=== PATIENT | female | born 1950 | race Caucasian/White ===

== ENCOUNTER 2016-08-03 13:35 | Observation (INO) ==
--- NOTE | 2016-08-03 15:19 | Emergency Department Note ---
Disposition Clinical Impression: Hypertension, Hypertensive urgency, UTI (urinary tract infection), Frail elderly Disposition: Admitted As Inpatient Referrals: Evan Davis MD [Primary Care Provider] - Forms: Work/School Release, ED Satisfaction Letter General Adult HPI - General Chief complaint: ED General Medical Stated complaint: HTN Time Seen by Provider: 08/03/16 15:18 Source: patient Limitations: no limitations - History of Present Illness HPI Narrative: 65-year-old female history of intermittent hypertension reports emergency department with concerns for elevated blood pressure. She usually takes a diuretic as needed to help bring her blood pressure down. She states she has had trouble taking clonidine in the past secondary to rebound hypertension. She does not usually take antihypertensive medication daily. The patient monitor her blood pressure today and noticed it was up and took a few doses of diuretic which were unhelpful. She reports she just feels a little bit off, she has a mild head pressure without severe headache. There is no history of convulsion confusion or any trouble walking talking hearing seeing or speaking. No unilateral arm weakness or numbness reported apart from some slight left arm tingling which occurred when she was feeling somewhat anxious about her blood pressure. There is no history of chest pain shortness of breath or abdominal pain no vomiting or diarrhea no trouble walking talking hearing seeing or speaking. Next rash or fever or cough reported or noted. She usually receives injections in the SI joint for her pain. She has had hypertensive reaction to nonsteroidals in the past but no notable reactions to steroids. She does not have significant back or hip pain at this time. The patient denies any other complaints or concerns. Pain Scale: 1 - Related Data Home Medications Medication Instructions Recorded Confirmed ALPRAZolam [Xanax 0.5 MG Tablet] 0.25 - 0.5 mg PO BID PRN 08/03/16 08/03/16 Cholecalciferol (D-3) [Vitamin D] 2,000 unit PO DAILY 08/03/16 08/03/16 Sucralfate [Carafate] 1 gm PO DAILY PRN 08/03/16 08/03/16 hydroCHLOROthiazide 12.5 - 25 mg PO DAILY PRN 08/03/16 08/03/16 [Hydrochlorothiazide] Allergies Allergy/AdvReac Type Severity Reaction Status Date / Time aspirin [ASA] AdvReac Cough Verified 04/15/15 13:21 lisinopril AdvReac Muscle Pain Verified 04/15/15 13:21 losartan [Losartan] AdvReac Muscle Pain Verified 04/15/15 13:21 NSAIDS (Non-Steroidal AdvReac Gastrointestinal Verified 04/15/15 13:21 Anti-Inflamma Upset Penicillins [PCN] AdvReac Rash Verified 04/15/15 13:21 All systems ED: reviewed and negative except as stated. Past Medical History - Past Medical History Medical history: Reports: arthritis, hypertension Surgical history: Reports: breast surgery, cholecystectomy, hysterectomy, thyroidectomy Psychiatric history: Reports: anxiety [employer] RE[employer]ER history: Reports: non-contributory - Social History Smoking Status: Never smoker Smokeless Tobacco Status: No Alcohol use: Reports: none Drug use: Reports: none Physical Exam - General Limitations: no limitations General appearance: alert, in no apparent distress - Head Head exam: atraumatic, normocephalic, normal inspection - Eye Eye exam: Present: normal appearance, PERRL, EOMI. Absent: scleral icterus, conjunctival injection, miosis, mydriasis, periorbital swelling - ENT ENT exam: normal exam, normal oropharynx, mucous membranes moist - Neck Neck exam: Present: normal inspection, full ROM, trachea midline. Absent: tenderness - Chest Chest inspection: Present: normal inspection, symmetric chest wall rise. Absent : tenderness - Respiratory Respiratory exam: Present: normal lung sounds bilaterally. Absent: respiratory distress, wheezes, stridor, accessory muscle use, prolonged expiratory phase - Cardiovascular Cardiovascular exam: Present: regular rate, normal rhythm, normal heart sounds - Abdominal Exam Abdominal exam: Present: soft, Non-Tender, normal bowel sounds. Absent: tenderness, distention, guarding, rebound, rigidity, pulsatile mass - Extremities Exam Extremities exam: Present: normal inspection, full ROM, normal capillary refill. Absent: tenderness, pedal edema, joint swelling, calf tenderness - Expanded Lower Extremity Exam Lower leg exam: Absent: Homans' sign Neurovascular/Tendon exam: Present: normal capillary refill. Absent: motor deficit, sensory deficit, tendon deficit, extremity cold to touch, pallor - Back Exam Back exam: Present: normal inspection, full ROM. Absent: tenderness, CVA tenderness (R), CVA tenderness (L), vertebral tenderness - Neurological Exam Neurological exam: Present: alert, oriented X3, CN II-XII intact. Absent: motor sensory deficit - Psychiatric Psychiatric exam: Present: normal affect, normal mood - Skin Skin exam: Present: warm, dry, intact, normal color. Absent: rash, cyanosis, diaphoresis, erythema, pallor, mottled Course - Reevaluation(s) Reevaluation #1: The patient was monitored in the emergency department. Her blood pressure was elevated. A dose of metoprolol was given by mouth, the patient did not respond. IV access was established and labetalol was given. Her blood pressure did come down to 156 over 90 range diastolic. Vital Signs Temperature 98.1 F 08/03/16 13:36 Pulse Rate 73 08/03/16 13:36 Respiratory Rate 16 08/03/16 13:36 Blood Pressure 200/105 08/03/16 13:36 O2 Sat by Pulse Oximetry 96 08/03/16 13:36 Temperature 98.1 F 08/03/16 13:36 Pulse Rate 87 08/03/16 19:07 Respiratory Rate 18 08/03/16 19:07 Blood Pressure 156/83 08/03/16 19:07 O2 Sat by Pulse Oximetry 98 08/03/16 19:07 Oxygen Delivery Oxygen Delivery Room Air Medical Decision Making - MDM Narrative Medical decision making narrative: On review with the patient, she usually does not have elevated blood pressures this high. Her diastolic did reach 114 in the ED. She did not respond to by mouth medication. Labetalol IV was utilized and did bring her blood pressure down into the 140s over 90s range. The patient did describe feeling a little disoriented as well as some slight left arm tingling earlier in the day. Based on her age, significantly elevated systolic and diastolic blood pressures and apparent symptomatology, I think it would be appropriate to admit the patient the hospital. She seems to be stable and generally meets criteria for hypertensive urgency. She does not take antihypertensive medications on a regular basis she states. Her blood pressures are usually not this elevated or sustained per her history. I have discussed the case with the hospitalist on- call who has accepted the patient to their care. + And initial urinalysis was reported as positive, however this is likely to have been a specimen error as the patient had not yet produced urine in the ED. Initially Cipro was ordered based on the result. Cipro was canceled. The initial urinalysis results were canceled. Urinalysis pending. - Lab Data Lab results reviewed: Yes I reviewed the patient's lab results. Result diagrams: 08/03/16 17:07 08/03/16 17:07 Lab Results 08/03/16 08/03/16 08/03/16 Range/Units 15:19 17:07 17:07 WBC 8.1 (4.3-11.1) K/mcL RBC 4.97 (3.82-4.97) M/mcL Hgb 15.5 H (11.5-15.4) g/dL Hct 45.4 H (35.3-44.9) % MCV 91.3 (83.0-100.0) fL MCH 31.2 (28.0-33.3) pg MCHC 34.1 (31.6-35.5) g/dL RDW 12.5 (11.5-14.5) % Plt Count 243 (140-400) K/mcL MPV 9.4 (9.4-12.4) fL Immature Gran % 0.4 (0-4) % Seg Neutrophils % 71.7 % Lymphocytes % 22.2 % Monocytes % 5.2 % Eosinophils % 0.1 % Basophils % 0.4 % Neutrophils # 5.8 (1.6-8.9) K/mcL Lymphocytes # 1.8 (0.6-4.6) K/mcL Monocytes # 0.4 (0.0-1.3) K/mcL Eosinophils # 0.0 (0.0-0.6) K/mcL Basophils # 0.0 (0.0-0.2) K/mcL Sodium 141 (136-145) mEq/L Potassium 3.9 (3.5-4.5) mEq/L Chloride 103 (98-109) mEq/L Carbon Dioxide 29 (19-29) mEq/L BUN 12 (7-20) mg/dL Creatinine 0.74 (0.57-1.11) mg/dL Est GFR ( Amer) > 60 (> 60) Est GFR (Non-Af Amer) > 60 (> 60) BUN/Creatinine Ratio 16 (6-26) Glucose 90 (70-99) mg/dL Calculated Osmolality 291 (280-300) Calcium 10.0 (8.6-10.8) mg/dL Troponin I (0-0.03) ng/mL Urine Color TNP Urine Clarity TNP Urine pH TNP Ur Specific [place] TNP Urine Protein TNP Urine Glucose (UA) TNP Urine Clinitest TNP Urine Ketones TNP Urine Blood TNP Urine Nitrite TNP Urine Bilirubin TNP Urine Urobilinogen TNP Ur Leukocyte Esterase TNP Urine Microscopic RBC TNP Urine Microscopic WBC TNP Ur Squamous Epith Cells TNP Ur Transition Epith Cell TNP Ur Renal Epithelial Cell TNP [place] Biurate Crystals TNP Calcium Carbonate Cryst TNP Calcium Phosphate Cryst TNP Calcium Oxalate Crystal TNP Cystine Crystals TNP Uric Acid Crystals TNP Triple Phos Crystals TNP Tyrosine Crystals TNP Amorphous Sediment TNP Urine Bacteria TNP Hyaline Casts TNP Ur Culture Indicated? NO (NO) 08/03/16 Range/Units 17:07 WBC (4.3-11.1) K/mcL RBC (3.82-4.97) M/mcL Hgb (11.5-15.4) g/dL Hct (35.3-44.9) % MCV (83.0-100.0) fL MCH (28.0-33.3) pg MCHC (31.6-35.5) g/dL RDW (11.5-14.5) % Plt Count (140-400) K/mcL MPV (9.4-12.4) fL Immature Gran % (0-4) % Seg Neutrophils % % Lymphocytes % % Monocytes % % Eosinophils % % Basophils % % Neutrophils # (1.6-8.9) K/mcL Lymphocytes # (0.6-4.6) K/mcL Monocytes # (0.0-1.3) K/mcL Eosinophils # (0.0-0.6) K/mcL Basophils # (0.0-0.2) K/mcL Sodium (136-145) mEq/L Potassium (3.5-4.5) mEq/L Chloride (98-109) mEq/L Carbon Dioxide (19-29) mEq/L BUN (7-20) mg/dL Creatinine (0.57-1.11) mg/dL Est GFR ( Amer) (> 60) Est GFR (Non-Af Amer) (> 60) BUN/Creatinine Ratio (6-26) Glucose (70-99) mg/dL Calculated Osmolality (280-300) Calcium (8.6-10.8) mg/dL Troponin I 0.01 (0-0.03) ng/mL Urine Color Urine Clarity Urine pH Ur Specific [place] Urine Protein Urine Glucose (UA) Urine Clinitest Urine Ketones Urine Blood Urine Nitrite Urine Bilirubin Urine Urobilinogen Ur Leukocyte Esterase Urine Microscopic RBC Urine Microscopic WBC Ur Squamous Epith Cells Ur Transition Epith Cell Ur Renal Epithelial Cell [place] Biurate Crystals Calcium Carbonate Cryst Calcium Phosphate Cryst Calcium Oxalate Crystal Cystine Crystals Uric Acid Crystals Triple Phos Crystals Tyrosine Crystals Amorphous Sediment Urine Bacteria Hyaline Casts Ur Culture Indicated? (NO) - Radiology Data Radiology results reviewed: Yes I reviewed the patient's radiology results.
[2016-08-03] MEDS: *HR* Labetalol 20 MG/4 ML SYRINGE IVP ONE ×2 (16:49→18:36)
[2016-08-03 17:40] LABS: Basophils % 0.4 %; Eosinophils % 0.1 %; Hematocrit 45.4 % (35.3-44.9); Hemoglobin 15.5 g/dL (11.5-15.4); Immature Granulocytes % 0.4 % (0-4); Lymphocytes # 1.8 K/mcL (0.6-4.6); Lymphocytes % 22.2 %; Mean Corpuscular HGB Conc 34.1 g/dL (31.6-35.5); Mean Corpuscular Hemoglobin 31.2 pg (28.0-33.3); Mean Corpuscular Volume 91.3 fL (83.0-100.0); Mean Platelet Volume 9.4 fL (9.4-12.4); Monocytes # 0.4 K/mcL (0.0-1.3); Monocytes % 5.2 %; Neutrophils # 5.8 K/mcL (1.6-8.9); Platelet Count 243 K/mcL (140-400); Red Blood Count 4.97 M/mcL (3.82-4.97); Red Cell Distribution Width 12.5 % (11.5-14.5); Segmented Neutrophils % 71.7 %
[2016-08-03 17:56] LABS: BUN/Creatinine Ratio 16 (6-26); Blood Urea Nitrogen 12 mg/dL (7-20); Carbon Dioxide 29 mEq/L (19-29); Chloride 103 mEq/L (98-109); Glucose 90 mg/dL (70-99); Osmolality,Calculated 291 (280-300); Potassium 3.9 mEq/L (3.5-4.5); Sodium 141 mEq/L (136-145); eGFR For African Americans > 60 (> 60); eGFR For Non-African Americans > 60 (> 60)
[2016-08-03] MEDS ORDERED: *HR* Labetalol 20 MG/4 ML SYRINGE IVP ONE (18:59)
[2016-08-03] MEDS ORDERED: Acetaminophen 325 MG TABLET PO PRN (22:34)
[2016-08-03] MEDS ORDERED: Naloxone 0.4 MG/ML INJ IVP PRN (22:34)
--- NOTE | 2016-08-04 01:47 | Internal Med History&Physical ---
Date of Encounter: 08/04/16 Time of Encounter: 23:00 Assessment and Plan (1) Hypertensive urgency Current visit: Yes Status: Acute Has improved greatly after treatment in the ED (labetolol and metoprolol). Hydralazine ordered PRN systolic >175 mmhg. As requested, will consult Nephrology for further recommendations. Echocardiogram ordered. UA ordered to evaluate for proteinuria. Internal Medicine - H&P: HPI Chief complaint: high blood pressure Admitted From: Home Plans for Post Hospital Care: Home History of present illness: Ms. Perez is a 65 year old female with past medical history thyroid nodule, hypertension who presents to [facility] with complaints of elevated BP readings in the 180s-200 systolic. She states that her blood pressure elevates when she takes NSAIDS or eats salty foods. She recently had a steroid injection for her SI joint and attributes her elevated blood pressure to having this procedure performed 3 days ago. Her blood pressure had been in the 110s/70-80s up until this point and has been able to manage hypertension by diet and exercise. She has requested to see a [facility]ocker to manage her labile bp readings as she has had trouble tolerating multiple antihypertensives in the past. She denies any chest pain. Has a very mild headache. Denies any other complaints. Past Med Surg Social Fam HX - Past Medical History Source: patient Medical history: arthritis, hypertension, other (thyroid nodule) Psychiatric history: anxiety - Past Surgical History Surgical History: breast surgery, cholecystectomy, hysterectomy, thyroidectomy - Social History Smoking Status: Never smoker Smokeless Tobacco Status: No Alcohol use: none Drug use: none - Family History Mother Name: Alexandria reveles Living Status: Age at : 44 Cause of : cancer Hx Family Cardiac Disorders: No Hx Family Respiratory Disorders: No Hx Family Cancer: Yes (colon) Hx Family GI Disorders: No Hx Family Genitourinary Disorders: No Hx Family Endocrine Disorder: No Hx Family Musculoskeletal Disorders: No Hx Family Neuromuscular Disorders: No Internal Medicine - H&P: Meds ALPRAZolam [Xanax 0.5 MG Tablet] 0.25 - 0.5 mg PO BID PRN 08/03/16 [History] Cholecalciferol (D-3) [Vitamin D] 2,000 unit PO DAILY 08/03/16 [History] Sucralfate [Carafate] 1 gm PO DAILY PRN 08/03/16 [History] hydroCHLOROthiazide [Hydrochlorothiazide] 12.5 - 25 mg PO DAILY PRN 08/03/16 [ History] Allergies aspirin [ASA] Adverse Reaction (Verified 04/15/15 13:21) Cough lisinopril Adverse Reaction (Verified 04/15/15 13:21) Muscle Pain losartan [Losartan] Adverse Reaction (Verified 04/15/15 13:21) Muscle Pain NSAIDS (Non-Steroidal Anti-Inflamma Adverse Reaction (Verified 04/15/15 13:21) Gastrointestinal Upset Penicillins [PCN] Adverse Reaction (Verified 04/15/15 13:21) Rash All Systems PM: A 10-system review of systems was performed and is negative for pertinent findings except as documented above in the HPI. - EENT Eyes: no blurry vision, no change in vision - Cardiovascular Cardiovascular ROS IM: no chest pain, no dyspnea - Respiratory Respiratory: no dyspnea - Neurological Neurological ROS: headache(s), no dizziness, no loss of vision - Constitutional Vitals: Temp Pulse Resp BP Pulse Ox 97.7 F 57 16 143/89 96 08/03/16 21:44 08/03/16 21:44 08/03/16 21:44 08/03/16 21:44 08/03/16 21:44 General appearance: Present: A&O X 3, pleasant, no acute distress, answers questions appropriately - ENT ENT exam: Present: mucous membranes moist - Respiratory Respiratory exam: Present: CTAB - Cardiovascular Cardiovascular exam: Present: RRR, +S1, +S2 - Extremities Exam Extremities exam: Absent: pedal edema - Neurological Exam Neurological exam: Present: alert, oriented X3 Internal Med - H&P Results - Labs CBC & Chem 7: 08/03/16 17:07 08/03/16 17:07
[2016-08-04 06:08] LABS: Basophils % 0.2 %; Eosinophils % 0.2 %; Hematocrit 42.5 % (35.3-44.9); Hemoglobin 14.5 g/dL (11.5-15.4); Immature Granulocytes % 0.4 % (0-4); Lymphocytes # 2.1 K/mcL (0.6-4.6); Lymphocytes % 22.8 %; Mean Corpuscular HGB Conc 34.1 g/dL (31.6-35.5); Mean Corpuscular Volume 90.8 fL (83.0-100.0); Mean Platelet Volume 9.6 fL (9.4-12.4); Monocytes # 0.7 K/mcL (0.0-1.3); Monocytes % 7.1 %; Neutrophils # 6.4 K/mcL (1.6-8.9); Platelet Count 228 K/mcL (140-400); Red Blood Count 4.68 M/mcL (3.82-4.97); Red Cell Distribution Width 12.6 % (11.5-14.5); Segmented Neutrophils % 69.3 %
[2016-08-04 06:20] LABS: Alanine Aminotransferase 16 Units/L (0-55); Albumin 3.7 g/dL (3.5-5.0); Albumin/Globulin Ratio 1.2 (1.1-2.2); Alkaline Phosphatase 79 Units/L (38-126); Aspartate Amino Transferase 15 Units/L (5-34); BUN/Creatinine Ratio 20 (6-26); Bilirubin,Total 1.9 mg/dL (0.2-1.2); Blood Urea Nitrogen 14 mg/dL (7-20); Calcium 9.5 mg/dL (8.6-10.8); Carbon Dioxide 27 mEq/L (19-29); Chloride 105 mEq/L (98-109); Chol/HDL Ratio 4.8 (0-4.9); Cholesterol 211 mg/dL (< 200); Glucose 88 mg/dL (70-99); HDL Cholesterol 44 mg/dL (40-59); LDL Cholesterol,Calculated 151 mg/dL (0-99); Osmolality,Calculated 292 (280-300); Potassium 3.7 mEq/L (3.5-4.5); Sodium 141 mEq/L (136-145); Total Protein 6.7 g/dL (6.0-8.3); Triglycerides 79 mg/dL (< 150); eGFR For African Americans > 60 (> 60); eGFR For Non-African Americans > 60 (> 60)
[2016-08-04 06:44] LABS: Thyroid Stimulating Hormone 1.419 mcIU/mL (0.350-4.840)
--- NOTE | 2016-08-04 09:02 | Electrocardiograph Report ---
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
--- NOTE | 2016-08-04 13:13 | Nephrology Consult Note ---
Date of Encounter: 08/04/16 Time of Encounter: 13:11 Assessment and Plan (1) Hypertension Current Visit: Yes Status: Acute Patient appears to have episodic increases in her blood pressure. She thinks is primarily related to effects from other medications. It is not clear if she truly has sustained hypertension. She states that she typically does not require medication to control her blood pressure unless she gets into trouble with the medication reaction. I think it may be worthwhile to evaluate her for causes of episodic hypertension including checking her thyroid catecholamines and renal arteries. At this point in time I do not think I would recommend placing the patient on any long-term antihypertensive medication as long as her blood pressure remains at its current level. Qualifiers: Hypertension type: essential hypertension Qualified Code(s): I10 - Essential (primary) hypertension History of Present Illness - History of Present Illness This is a 65-year-old female admitted with complaints of headache and elevated blood pressure. Patient reports she has had a history of blood pressure issues for the past 20 years or so. She says that most of the time her blood pressure is actually normal without medications. She says periodically her blood pressure elevate usually in response to various additional medications. For example when she takes NSAIDs her blood pressure will elevate. She recently had a steroid injection in her hip and she thinks that caused her the most recent elevation in her blood pressure. When she presented to the ER she says her blood pressure was 220/111. She states she monitors her blood pressure at home. Usually it is in the 120s over 70s. If she thinks her blood pressure is elevating she will take a partial hydrochlorothiazide tablet. She says she has to do this approximately one time per month. Most of the time her blood pressure she says is normal without antihypertensive medication. However she states her blood pressure has been known to elevate in response to taking various other medications including Zithromax as well as Tylenol. In the emergency room the patient was treated with labetalol metoprolol. Her blood pressure improved. She currently is only on when necessary hydralazine. Patient reports she has had multiple side effects and intolerances to multiple antihypertensive medications over the years. Past Med Surg Social Fam HX - Past Medical History Medical history: arthritis, hypertension, other (thyroid nodule) Psychiatric history: anxiety - Past Surgical History Surgical History: breast surgery, cholecystectomy, hysterectomy, thyroidectomy - Social History Smoking Status: Never smoker Smokeless Tobacco Status: No Alcohol use: none Drug use: none - Family History Mother Name: Alexandria reveles Living Status: Age at : 44 Cause of : cancer Hx Family Cardiac Disorders: No Hx Family Respiratory Disorders: No Hx Family Cancer: Yes (colon) Hx Family GI Disorders: No Hx Family Genitourinary Disorders: No Hx Family Endocrine Disorder: No Hx Family Musculoskeletal Disorders: No Hx Family Neuromuscular Disorders: No Medications and Allergies ALPRAZolam [Xanax 0.5 MG Tablet] 0.25 - 0.5 mg PO BID PRN 08/03/16 [History] Cholecalciferol (D-3) [Vitamin D] 2,000 unit PO DAILY 08/03/16 [History] Sucralfate [Carafate] 1 gm PO DAILY PRN 08/03/16 [History] hydroCHLOROthiazide [Hydrochlorothiazide] 12.5 - 25 mg PO DAILY PRN 08/03/16 [ History] Allergies aspirin [ASA] Adverse Reaction (Verified 04/15/15 13:21) Cough lisinopril Adverse Reaction (Verified 04/15/15 13:21) Muscle Pain losartan [Losartan] Adverse Reaction (Verified 04/15/15 13:21) Muscle Pain NSAIDS (Non-Steroidal Anti-Inflamma Adverse Reaction (Verified 04/15/15 13:21) Gastrointestinal Upset Penicillins [PCN] Adverse Reaction (Verified 04/15/15 13:21) Rash Review of Systems Constitutional: as per HPI Eyes: bilateral: blurred vision (patient denies), diplopia (patient denies) Nose, mouth and throat: no dizziness, no headache(s) Cardiovascular: no chest pain, no palpitations Respiratory: no cough, no dyspnea Gastrointestinal: no abdominal pain, no change in bowel habits Musculoskeletal: no muscle weakness, no numbness Integumentary: no hirsutism, no striae Neurological: as per HPI, headache(s) Psychiatric: no depression, no difficulty concentrating Exam - Vital Signs Vital signs: Initial Vital Signs Temp Pulse Resp BP Pulse Ox 98.1 F 73 16 200/105 96 08/03/16 13:36 08/03/16 13:36 08/03/16 13:36 08/03/16 13:36 08/03/16 13:36 Vital Signs - Last 8 Hours Temp Pulse Resp BP Pulse Ox 08/04/16 12:04 98.1 F 66 15 129/78 98 08/04/16 07:58 98 08/04/16 07:17 98.2 F 57 15 132/84 98 Intake and Output 08/03/16 08/04/16 08/04/16 23:59 07:59 15:59 Intake Total 0 / 0 0 / 0 0 / 0 Output Total 0 / 0 Balance 0 / 0 0 / 0 0 / 0 Intake: Oral 0 / 0 0 / 0 0 / 0 Output: Urine 0 / 0 Other: # Voids 0 0 1 - General Appearance Exam: The patient is alert and oriented. She is in no acute distress. Blood pressure is 120/78. Neck supple. Carotids no bruits. Lungs clear to auscultation. Heart regular rate and rhythm. Abdomen shows normal bowel sounds Brozman masses or megaly or tenderness. There is no peripheral edema. Results - Lab Results 08/04/16 05:10 08/04/16 05:10 Most recent lab results Calcium 9.5 mg/dL (8.6-10.8) 08/04/16 05:10 Consult Discharge Plan - Plan Referrals: Evan Davis MD [Primary Care Provider] -
[2016-08-05 11:03] VITALS: BP 173/86
--- NOTE | 2016-08-05 11:47 | Discharge Summary ---
<Benjie Guzmán - Last Filed: 08/05/16 14:31> Date of Encounter: 08/05/16 Time of Encounter: 11:40 - Discharge Diagnosis (1) Hypertensive urgency Priority: Primary Status: Acute (2) Hyperlipidemia Priority: Secondary Status: Acute Qualifiers: Qualified Code(s): E78.5 - Hyperlipidemia, unspecified (3) DVT prophylaxis Priority: Secondary Status: Acute - Discharge Medications Home Medications: ALPRAZolam [Xanax 0.5 MG Tablet] 0.25 - 0.5 mg PO BID PRN 08/03/16 [History] Cholecalciferol (D-3) [Vitamin D] 2,000 unit PO DAILY 08/03/16 [History] Sucralfate [Carafate] 1 gm PO DAILY PRN 08/03/16 [History] hydroCHLOROthiazide [Hydrochlorothiazide] 12.5 - 25 mg PO DAILY PRN 08/03/16 [ History] Allergies/Adverse Reactions: Allergies aspirin [ASA] Adverse Reaction (Verified 04/15/15 13:21) Cough lisinopril Adverse Reaction (Verified 04/15/15 13:21) Muscle Pain losartan [Losartan] Adverse Reaction (Verified 04/15/15 13:21) Muscle Pain NSAIDS (Non-Steroidal Anti-Inflamma Adverse Reaction (Verified 04/15/15 13:21) Gastrointestinal Upset Penicillins [PCN] Adverse Reaction (Verified 04/15/15 13:21) Rash Procedures/tests Complete & Pending: Procedures Performed prior 72 hours Category Date Time Status EV echocardiogram Routine Y 08/04/16 07:00 Completed Renal artery ultrasound [EV renal artery image] Routine Y 08/04/16 12:01 Completed Date of admission: 08/03/16 21:13 Primary care physician: Evan Davis MD Consults: 08/03/16 22:31 Consult to Nephrology [CONS] Routine Consulting Provider: Rk Singh Reason for Consult: patient requests nephrology consultation for HTN Call Completed: No Discharging clinician: Benjie Guzmán Anticipated date of discharge: 08/05/16 - Patient Status Disposition: Home, Self-Care Condition: Good Functional capacity at discharge: independent ambulation Overall status at discharge: patient is progressing back to baseline - Discharge Instructions Instructions: Urinary Tract Infection in Women (DC), Chronic Hypertension (DC) Follow Up With: Evan Davis MD [Primary Care Provider] - 08/14/16 3:00 pm Rk Singh DO [Non-Partnered Physician] - 10/14/16 10:45 am (F/u in a week for episodic HTN) - Diet and Activity Activity: resume usual activities as tolerated Diet: low fat, low cholesterol Hospital course: Ms. Perez is a 65 year old female with episodic hypertension who presented to ER with hypertensive urgency with systolic blood pressure more than 200, with slight headache, patient was admitted to the hospital for the same reason, patient states that she gets this episodic hypertension whenever she gets NSAIDS , patient received hydralazine IV when necessary during this hospital stay and her blood pressure has been stable, nephrology was consulted for further recommendation, CT scan of the head and echo were normal, fractionated catecholamines and renal artery ultrasound were ordered, nephrology recommended she does not have to be on antihypertensive medication daily, on the day of the discharge patient had no symptoms, therefore patient will be discharged to home in a stable condition with close follow-up with nephrology office as outpt for result of lab test and renal artery u/s. - Time Spent with Patient Total time spent providing and/or coordinating discharge services: - Constitutional Vitals: Temp Pulse Resp BP Pulse Ox 97.6 F 58 16 173/86 96 08/05/16 10:59 08/05/16 10:59 08/05/16 10:59 08/05/16 10:59 08/05/16 10:59 General appearance: Present: cooperative, A&O X 3, pleasant, no acute distress, answers questions appropriately - Head Head exam: Present: atraumatic, normocephalic - Eye Eye exam: Present: PERRL, conjuntiva pink, sclera anicteric Pupils: Present: PERRL - Neck Neck exam general surgery: Present: supple, trachea midline. Absent: lymphadenopathy - Respiratory Respiratory exam: Present: CTAB. Absent: accessory muscle use, rales, rhonchi, wheezes - Cardiovascular Cardiovascular exam: Present: RRR, +S1, +S2. Absent: diastolic murmur, gallop, rubs, systolic murmur - GI/Abdominal GI/Abdominal exam: Present: normal bowel sounds, soft, no peritoneal signs. Absent: distended, tenderness - Extremities Exam Extremities exam: Present: warm, radial pulses palpable and symetrical. Absent : calf tenderness, cyanotic, pedal edema - Neurological Exam Neurological exam: Present: CN II-XII intact, oriented X3, no focal deficits. Absent: pronater drift, facial droop, speech deficit - Skin Skin exam: Present: dry, intact <Chris Almonte - Last Filed: 08/05/16 14:52> Date of Encounter: 08/05/16 - Discharge Diagnosis (1) Hypertensive urgency Status: Acute (2) Intermittent hypertension Priority: Secondary Status: Acute (3) Hyperlipidemia Status: Acute Qualifiers: Hyperlipidemia type: mixed hyperlipidemia Qualified Code(s): E78.2 - Mixed hyperlipidemia Procedures/tests Complete & Pending: Procedures Performed prior 72 hours Category Date Time Status EV echocardiogram Routine Y 08/04/16 07:00 Completed Renal artery ultrasound [EV renal artery image] Routine Y 08/04/16 12:01 Completed Date of admission: 08/03/16 21:13 Primary care physician: Evan Davis MD Consults: 08/03/16 22:31 Consult to Nephrology [CONS] Routine Consulting Provider: Rk Singh Reason for Consult: patient requests nephrology consultation for HTN Call Completed: No Hospital course: Ms. Perez is a 65 year old female - Time Spent with Patient Total time spent providing and/or coordinating discharge services: - Constitutional Vitals: Temp Pulse Resp BP Pulse Ox 97.6 F 58 16 173/86 96 08/05/16 10:59 08/05/16 10:59 08/05/16 10:59 08/05/16 10:59 08/05/16 10:59 - Attending Attestation I examined this patient and my medical decision-making was reviewed with the Resident Physician on 08/05/16. I agree with the documented findings, disposition and treatment plan as described except to the extent set forth below. Ms. Perez is doing well. She has had no further hypertension. Ready for discharge home. Exam Alert. Comfortable Heart reg No wheeze Plan D/C home Follow up with Dr. Singh for results.
--- NOTE | 2016-08-05 22:57 | Arterial Study Report ---
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 Findings Renal Anatomy: The right kidney size measures 10.1 x 4.1 x 3.8 cm. The left kidney size measures 8.6 x 5 x 4.1 cm. Prior Study: No prior study available for comparison. Renal Duplex Right RAR:.9 Left RAR:.8 Side Vessel PSV EDV RI PI Accel Aorta 125.00 22.00 0.82 Left Proximal Renal Artery 100.00 31.00 0.69 Left Mid Renal Artery 101.00 35.00 0.65 Left Distal Renal Artery 75.00 27.00 0.64 Right Proximal Renal Artery 118.00 38.00 0.68 Right Mid Renal Artery 171.00 64.00 0.63 Right Distal Renal Artery 173.00 67.00 0.61 Updated by Wilberto Carcamo MD, FACS on 08/05/2016 10:53:22 PM Wilberto Carcamo MD electronically signed on 08/05/2016 10:53:40 PM with status of Final
== END 2016-08-05 15:16 | disposition home or self-care (01) ==
LOC: EMEROO 13:35 → 2NENU 13:35
PROVIDERS: ADMIT Family Medicine; ATTEND Internal Medicine

== ENCOUNTER 2019-03-06 14:10 | Observation (INO) ==
[2019-03-06] MEDS ORDERED: Aspirin 81 MG TAB.CHEW PO ONE (15:18)
[2019-03-06 15:47] LABS: Hematocrit 42.7 % (35.3-44.9); Hemoglobin 14.6 g/dL (11.5-15.4); Immature Granulocytes % 0.3 % (0-4); Lymphocytes % 22.3 %; Mean Corpuscular HGB Conc 34.2 g/dL (31.6-35.5); Mean Corpuscular Hemoglobin 31.6 pg (28.0-33.3); Mean Corpuscular Volume 92.4 fL (83.0-100.0); Mean Platelet Volume 9.1 fL (9.4-12.4); Platelet Count 199 K/mcL (140-400); Red Blood Count 4.62 M/mcL (3.82-4.97); Red Cell Distribution Width 12.4 % (11.5-14.5); Segmented Neutrophils % 69.9 %; White Blood Count 7.1 K/mcL (4.3-11.1)
[2019-03-06 15:48] LABS: Basophils % 0.3 %; Eosinophils # 0.1 K/mcL (0.0-0.6); Eosinophils % 0.7 %; Lymphocytes # 1.6 K/mcL (0.6-4.6); Monocytes # 0.5 K/mcL (0.0-1.3); Monocytes % 6.5 %; Neutrophils # 4.9 K/mcL (1.6-8.9)
[2019-03-06 16:05] LABS: BUN/Creatinine Ratio 28 (6-26); Blood Urea Nitrogen 21 mg/dL (8-23); Calcium 9.4 mg/dL (8.6-10.3); Carbon Dioxide 26 mEq/L (23-29); Chloride 106 mEq/L (98-107); Glucose 89 mg/dL (70-105); Osmolality,Calculated 292 (280-300); Potassium 3.4 mEq/L (3.5-5.1); Sodium 140 mEq/L (136-145); Troponin I < 0.03 ng/mL (< 0.04); eGFR For African Americans > 60 (> 60); eGFR For Non-African Americans > 60 (> 60)
[2019-03-06] MEDS ORDERED: Naloxone 0.4 MG/ML INJ IVP PRN (17:07)
[2019-03-06] MEDS ORDERED: Ondansetron 4 MG/2 ML VIAL IVP PRN (17:07)
[2019-03-06] MEDS ORDERED: *HR* LORazepam 0.5 MG TABLET PO PRN (17:11)
[2019-03-06] MEDS: *HR* Heparin 5,000 UNIT/ML VIAL SQ SCH (18:56)
[2019-03-07 04:53] LABS: INR 1.1
[2019-03-07 05:23] LABS: BUN/Creatinine Ratio 30 (6-26); Blood Urea Nitrogen 16 mg/dL (8-23); Calcium 9.2 mg/dL (8.6-10.3); Carbon Dioxide 25 mEq/L (23-29); Chloride 104 mEq/L (98-107); Chol/HDL Ratio 3.5 (0-4.9); Cholesterol 177 mg/dL (< 200); Glucose 127 mg/dL (70-105); HDL Cholesterol 50 mg/dL (40-59); LDL Cholesterol,Calculated 116 mg/dL (0-99); Magnesium 2.2 mg/dL (1.6-2.6); Osmolality,Calculated 289 (280-300); Potassium 3.6 mEq/L (3.5-5.1); Sodium 138 mEq/L (136-145); Triglycerides 54 mg/dL (< 150); eGFR For African Americans > 60 (> 60); eGFR For Non-African Americans > 60 (> 60)
[2019-03-07] MEDS: *HR* Heparin 5,000 UNIT/ML VIAL SQ SCH ×2 (05:27→16:59)
[2019-03-07] MEDS: Cholecalciferol (D-3) 1,000 UNIT (25MCG) TABLET PO SCH (08:24)
[2019-03-07 08:46] LABS: Estimated Average Glucose 114 mg/dl
[2019-03-07] MEDS: Aspirin Enteric Coated 81 MG Tablet PO SCH (12:30)
[2019-03-08] MEDS: *HR* Heparin 5,000 UNIT/ML VIAL SQ SCH (06:02)
[2019-03-08] MEDS ORDERED: Regadenoson 0.4 MG/5 ML SYRINGE IVP ONE (06:19)
[2019-03-08] MEDS: Aspirin Enteric Coated 81 MG Tablet PO SCH (07:40)
[2019-03-08] MEDS: Cholecalciferol (D-3) 1,000 UNIT (25MCG) TABLET PO SCH (07:40)
[2019-03-08 08:05] VITALS: BP 120/67
== END 2019-03-08 11:15 | disposition home or self-care (01) ==
LOC: 2NNU 14:10 → EMEROOARM 14:10 → SUATTDRO 18:07 → 2NNU 19:52 → 3BNU 03-07 16:10
PROVIDERS: ADMIT Internal Medicine; ATTEND Internal Medicine

== ENCOUNTER 2019-04-16 19:27 | Inpatient (IN) ==
[2019-04-16] MEDS ORDERED: Aspirin 81 MG TAB.CHEW PO ONE (19:39)
[2019-04-16] MEDS ORDERED: *HR* LORazepam 2 MG/ML VIAL IVP ONE (19:46)
[2019-04-16] MEDS ORDERED: Nitroglycerin 0.4 MG TAB.SUBL SL PRN (19:46)
[2019-04-16 20:04] LABS: Basophils % 0.4 %; Eosinophils # 0.1 K/mcL (0.0-0.6); Eosinophils % 0.8 %; Hematocrit 46.6 % (35.3-44.9); Hemoglobin 15.4 g/dL (11.5-15.4); Immature Granulocytes % 0.2 % (0-4); Lymphocytes # 2.4 K/mcL (0.6-4.6); Lymphocytes % 27.9 %; Mean Corpuscular Hemoglobin 30.7 pg (28.0-33.3); Mean Corpuscular Volume 92.8 fL (83.0-100.0); Mean Platelet Volume 9.1 fL (9.4-12.4); Monocytes # 0.6 K/mcL (0.0-1.3); Monocytes % 6.8 %; Neutrophils # 5.4 K/mcL (1.6-8.9); Platelet Count 235 K/mcL (140-400); Red Blood Count 5.02 M/mcL (3.82-4.97); Red Cell Distribution Width 12.5 % (11.5-14.5); Segmented Neutrophils % 63.9 %; White Blood Count 8.4 K/mcL (4.3-11.1)
[2019-04-16 20:14] LABS: Prothrombin Time 11.2 Seconds (9.4-12.1)
[2019-04-16 20:24] LABS: BUN/Creatinine Ratio 22 (6-26); Blood Urea Nitrogen 15 mg/dL (8-23); Calcium 9.9 mg/dL (8.6-10.3); Carbon Dioxide 27 mEq/L (23-29); Chloride 104 mEq/L (98-107); Glucose 94 mg/dL (70-105); Osmolality,Calculated 291 (280-300); Potassium 3.4 mEq/L (3.5-5.1); Sodium 140 mEq/L (136-145); Troponin I < 0.03 ng/mL (< 0.04); eGFR For African Americans > 60 (> 60); eGFR For Non-African Americans > 60 (> 60)
[2019-04-16] MEDS ORDERED: Naloxone 0.4 MG/ML INJ IVP PRN (21:24)
[2019-04-16] MEDS ORDERED: Ondansetron ODT 4 MG TAB.RAPDIS SL PRN (21:24)
[2019-04-16] MEDS ORDERED: Acetaminophen 325 MG TABLET PO PRN (21:24)
[2019-04-16] MEDS: *HR* Heparin 5,000 UNIT/ML VIAL SQ SCH (22:51)
[2019-04-17 04:03] LABS: Basophils % 0.3 %; Eosinophils # 0.1 K/mcL (0.0-0.6); Hematocrit 40.4 % (35.3-44.9); Immature Granulocytes % 0.2 % (0-4); Lymphocytes # 1.8 K/mcL (0.6-4.6); Lymphocytes % 29.5 %; Mean Corpuscular HGB Conc 33.2 g/dL (31.6-35.5); Mean Corpuscular Volume 93.5 fL (83.0-100.0); Mean Platelet Volume 9.2 fL (9.4-12.4); Monocytes # 0.5 K/mcL (0.0-1.3); Monocytes % 7.5 %; Neutrophils # 3.8 K/mcL (1.6-8.9); Platelet Count 200 K/mcL (140-400); Red Blood Count 4.32 M/mcL (3.82-4.97); Red Cell Distribution Width 12.5 % (11.5-14.5); Segmented Neutrophils % 61.5 %; White Blood Count 6.2 K/mcL (4.3-11.1)
[2019-04-17 04:04] LABS: Hemoglobin 13.4 g/dL (11.5-15.4)
[2019-04-17 04:21] LABS: Alanine Aminotransferase 23 Units/L (7-52); Albumin 3.6 g/dL (3.5-5.7); Albumin/Globulin Ratio 1.7 (1.1-2.2); Alkaline Phosphatase 64 Units/L (34-104); Aspartate Amino Transferase 17 Units/L (13-39); BUN/Creatinine Ratio 23 (6-26); Bilirubin,Total 1.4 mg/dL (0.3-1.0); Blood Urea Nitrogen 13 mg/dL (8-23); Carbon Dioxide 26 mEq/L (23-29); Chloride 109 mEq/L (98-107); Chol/HDL Ratio 3.9 (0-4.9); Cholesterol 163 mg/dL (< 200); Globulin 2.1 g/dL (2.4-3.5); Glucose 88 mg/dL (70-105); HDL Cholesterol 42 mg/dL (40-59); LDL Cholesterol,Calculated 104 mg/dL (0-99); Magnesium 2.1 mg/dL (1.6-2.6); Osmolality,Calculated 290 (280-300); Potassium 3.5 mEq/L (3.5-5.1); Sodium 140 mEq/L (136-145); Total Protein 5.7 g/dL (6.4-8.9); Triglycerides 87 mg/dL (< 150); eGFR For African Americans > 60 (> 60); eGFR For Non-African Americans > 60 (> 60)
[2019-04-17] MEDS: *HR* Heparin 5,000 UNIT/ML VIAL SQ SCH ×2 (05:46→18:08)
[2019-04-17] MEDS ORDERED: Regadenoson 0.4 MG/5 ML SYRINGE IVP ONE (06:11)
[2019-04-17] MEDS ORDERED: Aspirin 81 MG TAB.CHEW PO SCH (09:00)
[2019-04-17] MEDS ORDERED: cloNIDine HCl 0.1 MG TABLET PO PRN (10:17)
[2019-04-17] MEDS: ALPRAZolam 0.5 MG TABLET PO PRN (10:54)
[2019-04-17] MEDS: Aspirin 81 MG TAB.CHEW PO SCH (13:36)
[2019-04-18] MEDS: *HR* Heparin 5,000 UNIT/ML VIAL SQ SCH (05:32)
[2019-04-18] MEDS: Aspirin 81 MG TAB.CHEW PO SCH (08:38)
[2019-04-18] MEDS: ALPRAZolam 0.5 MG TABLET PO PRN (10:57)
[2019-04-18] MEDS ORDERED: 0.9 % Sodium Chloride 1,000 ML ONE (13:11)
[2019-04-18] MEDS ORDERED: Nitroglycerin 1,000 MCG/10 ML VIAL IV ONE (13:15)
[2019-04-18] MEDS ORDERED: *HR* Heparin 10,000 UNIT/10 ML VIAL ONE (13:17)
[2019-04-18] MEDS ORDERED: *HR* FentaNYL (PF) 100 MCG/2 ML VIAL ONE (13:22)
[2019-04-18] MEDS ORDERED: *HR* Midazolam HCl 2 MG/2 ML VIAL ONE ×2 (13:22→14:06)
[2019-04-18] MEDS ORDERED: ISOVUE-370 200 ML INFUS..BTL ONE (14:14)
[2019-04-18] MEDS ORDERED: Heparin 1,000 UNITS/500 mL 500 ML ONE (14:28)
[2019-04-18] MEDS ORDERED: *HR* Ticagrelor 90 MG TABLET ONE (14:35)
[2019-04-18] MEDS ORDERED: 0.9 % Sodium Chloride 1,000 ML IVC SCH (15:15)
[2019-04-18] MEDS ORDERED: *HR* Bivalirudin 250 MG VIAL IVC ONE (16:24)
[2019-04-18] MEDS: carvediloL 6.25 MG TABLET PO SCH (17:17)
[2019-04-18] MEDS ORDERED: *HR* Atropine Sulfate 1 MG/10 ML SYRINGE ONE (17:42)
[2019-04-19] MEDS ORDERED: Nitroprusside 50 MG in D5% in Water 250 ML IVC SCH (00:45)
[2019-04-19 01:28] LABS: Basophils % 0.1 %; Hematocrit 40.1 % (35.3-44.9); Hemoglobin 13.6 g/dL (11.5-15.4); Immature Granulocytes % 0.3 % (0-4); Lymphocytes # 0.6 K/mcL (0.6-4.6); Lymphocytes % 5.3 %; Mean Corpuscular HGB Conc 33.9 g/dL (31.6-35.5); Mean Corpuscular Hemoglobin 31.4 pg (28.0-33.3); Mean Corpuscular Volume 92.6 fL (83.0-100.0); Mean Platelet Volume 9.5 fL (9.4-12.4); Monocytes # 0.2 K/mcL (0.0-1.3); Monocytes % 1.5 %; Neutrophils # 9.8 K/mcL (1.6-8.9); Platelet Count 215 K/mcL (140-400); Red Blood Count 4.33 M/mcL (3.82-4.97); Red Cell Distribution Width 12.4 % (11.5-14.5); Segmented Neutrophils % 92.8 %
[2019-04-19 01:29] LABS: White Blood Count 10.6 K/mcL (4.3-11.1)
[2019-04-19 01:51] LABS: BUN/Creatinine Ratio 22 (6-26); Blood Urea Nitrogen 13 mg/dL (8-23); Calcium 8.9 mg/dL (8.6-10.3); Carbon Dioxide 17 mEq/L (23-29); Chloride 109 mEq/L (98-107); Glucose 90 mg/dL (70-105); Osmolality,Calculated 288 (280-300); Phosphorous 3.7 mg/dL (2.7-4.5); Potassium 3.5 mEq/L (3.5-5.1); Sodium 139 mEq/L (136-145); eGFR For African Americans > 60 (> 60); eGFR For Non-African Americans > 60 (> 60)
[2019-04-19] MEDS: Aspirin 81 MG TAB.CHEW PO SCH (08:19)
[2019-04-19] MEDS: carvediloL 6.25 MG TABLET PO SCH ×2 (08:19→17:28)
[2019-04-19] MEDS ORDERED: 0.9 % Sodium Chloride 1,000 ML IV ONE (12:06)
[2019-04-19] MEDS ORDERED: 0.9 % Sodium Chloride 1,000 ML ONE (12:08)
[2019-04-20 01:52] LABS: Basophils % 0.4 %; Eosinophils # 0.1 K/mcL (0.0-0.6); Eosinophils % 0.6 %; Hematocrit 36.2 % (35.3-44.9); Hemoglobin 12.4 g/dL (11.5-15.4); Immature Granulocytes % 0.4 % (0-4); Lymphocytes # 2.4 K/mcL (0.6-4.6); Lymphocytes % 28.7 %; Mean Corpuscular HGB Conc 34.3 g/dL (31.6-35.5); Mean Corpuscular Hemoglobin 31.7 pg (28.0-33.3); Mean Corpuscular Volume 92.6 fL (83.0-100.0); Mean Platelet Volume 9.6 fL (9.4-12.4); Monocytes # 0.7 K/mcL (0.0-1.3); Monocytes % 8.8 %; Platelet Count 201 K/mcL (140-400); Red Blood Count 3.91 M/mcL (3.82-4.97); Red Cell Distribution Width 13.1 % (11.5-14.5); Segmented Neutrophils % 61.1 %; White Blood Count 8.2 K/mcL (4.3-11.1)
[2019-04-20 02:10] LABS: BUN/Creatinine Ratio 28 (6-26); Blood Urea Nitrogen 21 mg/dL (8-23); Calcium 8.8 mg/dL (8.6-10.3); Carbon Dioxide 21 mEq/L (23-29); Chloride 110 mEq/L (98-107); Glucose 108 mg/dL (70-105); Magnesium 1.9 mg/dL (1.6-2.6); Osmolality,Calculated 290 (280-300); Potassium 3.3 mEq/L (3.5-5.1); Sodium 138 mEq/L (136-145); eGFR For African Americans > 60 (> 60); eGFR For Non-African Americans > 60 (> 60)
[2019-04-20 07:28] VITALS: BP 119/79
[2019-04-20] MEDS: carvediloL 6.25 MG TABLET PO SCH (07:50)
[2019-04-20] MEDS: Aspirin 81 MG TAB.CHEW PO SCH (07:51)
== END 2019-04-20 11:11 | disposition home or self-care (01) | DRG 247 ==
LOC: 3BNU 19:27 → EMEROOARM 19:27 → SUATTDRO 21:11 → 3BNU 21:32 → 2NNU 04-18 14:55
PROVIDERS: ADMIT Internal Medicine; ATTEND Pharmacist

== ENCOUNTER 2019-05-14 23:59 | Observation (INO) ==
[2019-05-15 00:38] LABS: Basophils % 0.5 %; Eosinophils # 0.1 K/mcL (0.0-0.6); Eosinophils % 1.3 %; Hematocrit 43.4 % (35.3-44.9); Hemoglobin 14.7 g/dL (11.5-15.4); Immature Granulocytes % 0.2 % (0-4); Lymphocytes # 1.8 K/mcL (0.6-4.6); Lymphocytes % 20.1 %; Mean Corpuscular HGB Conc 33.9 g/dL (31.6-35.5); Mean Corpuscular Hemoglobin 30.9 pg (28.0-33.3); Mean Corpuscular Volume 91.4 fL (83.0-100.0); Mean Platelet Volume 9.3 fL (9.4-12.4); Monocytes # 0.6 K/mcL (0.0-1.3); Monocytes % 6.4 %; Neutrophils # 6.3 K/mcL (1.6-8.9); Platelet Count 203 K/mcL (140-400); Red Blood Count 4.75 M/mcL (3.82-4.97); Red Cell Distribution Width 12.5 % (11.5-14.5); Segmented Neutrophils % 71.5 %; White Blood Count 8.8 K/mcL (4.3-11.1)
[2019-05-15 00:43] LABS: INR 0.9; Prothrombin Time 10.7 Seconds (9.4-12.1)
[2019-05-15 00:45] LABS: Activated Partial Thrombo Time 28.4 Seconds (26.0-36.0)
[2019-05-15 01:01] LABS: BUN/Creatinine Ratio 23 (6-26); Blood Urea Nitrogen 17 mg/dL (8-23); Calcium 10.1 mg/dL (8.6-10.3); Carbon Dioxide 24 mEq/L (23-29); Chloride 107 mEq/L (98-107); Glucose 107 mg/dL (70-105); Osmolality,Calculated 288 (280-300); Potassium 3.6 mEq/L (3.5-5.1); Sodium 138 mEq/L (136-145); eGFR For African Americans > 60 (> 60); eGFR For Non-African Americans > 60 (> 60)
[2019-05-15 01:06] LABS: Troponin I 0.34 ng/mL (< 0.04)
[2019-05-15] MEDS ORDERED: *HR* Labetalol 20 MG/4 ML SYRINGE IVP ONE (01:12)
[2019-05-15] MEDS ORDERED: *HR* Heparin 5,000 UNIT/ML VIAL IVP PRN ×2 (01:37)
[2019-05-15] MEDS ORDERED: *HR* Heparin 5,000 UNIT/ML VIAL IVP ONE (01:37)
[2019-05-15] MEDS ORDERED: Heparin 25,000 UNIT/250 ML D5W 25,000 UNIT/250 ML IV.SOLN IVC SCH (01:45)
[2019-05-15] MEDS ORDERED: Naloxone 0.4 MG/ML INJ IVP PRN (02:05)
[2019-05-15] MEDS ORDERED: *HR* Labetalol 20 MG/4 ML SYRINGE IVP PRN ×2 (02:09→02:28)
[2019-05-15] MEDS ORDERED: Aspirin Enteric Coated 81 MG Tablet PO ONE (02:12)
[2019-05-15] MEDS ORDERED: Nitroglycerin 0.4 MG TAB.SUBL SL PRN (02:33)
[2019-05-15] MEDS ORDERED: ALPRAZolam 0.5 MG TABLET PO PRN (02:33)
[2019-05-15] MEDS: carvediloL 6.25 MG TABLET PO SCH ×3 (03:00→17:49)
[2019-05-15 04:41] LABS: Albumin/Globulin Ratio 1.9 (1.1-2.2); Bilirubin,Direct 0.3 mg/dL (0.0-0.2); Bilirubin,Indirect 1.1 mg/dL (0.0-1.0); Bilirubin,Total 1.4 mg/dL (0.3-1.0); Globulin 2.1 g/dL (2.4-3.5); Phosphorous 3.3 mg/dL (2.7-4.5); Total Protein 6.1 g/dL (6.4-8.9)
[2019-05-15 04:53] LABS: Thyroid Stimulating Hormone 1.139 mcIU/mL (0.340-5.600)
[2019-05-15] MEDS: Aspirin 81 MG TAB.CHEW PO SCH (07:32)
[2019-05-15] MEDS: lisinopriL 20 MG TABLET PO SCH (07:32)
[2019-05-15 08:02] LABS: Estimated Average Glucose 120 mg/dl
[2019-05-16 01:20] LABS: Basophils % 0.6 %; Eosinophils # 0.1 K/mcL (0.0-0.6); Eosinophils % 1.7 %; Hematocrit 37.6 % (35.3-44.9); Immature Granulocytes % 0.3 % (0-4); Lymphocytes % 29.2 %; Mean Corpuscular HGB Conc 34.3 g/dL (31.6-35.5); Mean Corpuscular Hemoglobin 31.6 pg (28.0-33.3); Mean Corpuscular Volume 92.2 fL (83.0-100.0); Mean Platelet Volume 9.7 fL (9.4-12.4); Monocytes # 0.6 K/mcL (0.0-1.3); Monocytes % 8.5 %; Neutrophils # 4.2 K/mcL (1.6-8.9); Platelet Count 165 K/mcL (140-400); Red Blood Count 4.08 M/mcL (3.82-4.97); Red Cell Distribution Width 12.7 % (11.5-14.5); Segmented Neutrophils % 59.7 %
[2019-05-16 01:22] LABS: Hemoglobin 12.9 g/dL (11.5-15.4)
[2019-05-16 01:40] LABS: BUN/Creatinine Ratio 20 (6-26); Blood Urea Nitrogen 12 mg/dL (8-23); Calcium 9.2 mg/dL (8.6-10.3); Carbon Dioxide 24 mEq/L (23-29); Chloride 108 mEq/L (98-107); Glucose 90 mg/dL (70-105); Osmolality,Calculated 285 (280-300); Potassium 3.3 mEq/L (3.5-5.1); Sodium 138 mEq/L (136-145); eGFR For African Americans > 60 (> 60); eGFR For Non-African Americans > 60 (> 60)
[2019-05-16 07:06] VITALS: BP 112/72
[2019-05-16] MEDS: carvediloL 6.25 MG TABLET PO SCH (08:16)
[2019-05-16] MEDS: lisinopriL 20 MG TABLET PO SCH (08:16)
[2019-05-16] MEDS: Aspirin 81 MG TAB.CHEW PO SCH (08:16)
== END 2019-05-16 17:05 | disposition home or self-care (01) ==
LOC: EMEROOARM 23:59 → 2NENU 23:59 → SUATTDRO 05-15 02:11 → 2NENU 05-15 02:41
PROVIDERS: ADMIT Family Medicine; ATTEND Internal Medicine

== ENCOUNTER 2019-10-31 08:45 | Observation (INO) ==
[2019-10-31 09:44] LABS: Basophils % 0.4 %; Eosinophils % 0.4 %; Hematocrit 41.7 % (35.3-44.9); Hemoglobin 13.7 g/dL (11.5-15.4); Immature Granulocytes % 0.3 % (0-4); Lymphocytes # 1.2 K/mcL (0.6-4.6); Lymphocytes % 15.1 %; Mean Corpuscular HGB Conc 32.9 g/dL (31.6-35.5); Mean Corpuscular Hemoglobin 31.1 pg (28.0-33.3); Mean Corpuscular Volume 94.8 fL (83.0-100.0); Mean Platelet Volume 9.4 fL (9.4-12.4); Monocytes # 0.5 K/mcL (0.0-1.3); Monocytes % 6.4 %; Neutrophils # 6.1 K/mcL (1.6-8.9); Platelet Count 186 K/mcL (140-400); Red Cell Distribution Width 12.8 % (11.5-14.5); Segmented Neutrophils % 77.4 %; White Blood Count 7.9 K/mcL (4.3-11.1)
[2019-10-31 10:01] LABS: Alanine Aminotransferase 27 Units/L (7-52); Albumin 4.2 g/dL (3.5-5.7); Albumin/Globulin Ratio 1.9 (1.1-2.2); Alkaline Phosphatase 64 Units/L (34-104); Aspartate Amino Transferase 17 Units/L (13-39); BUN/Creatinine Ratio 31 (6-26); Bilirubin,Total 2.1 mg/dL (0.3-1.0); Blood Urea Nitrogen 18 mg/dL (8-23); Calcium 9.1 mg/dL (8.6-10.3); Carbon Dioxide 26 mEq/L (23-29); Chloride 107 mEq/L (98-107); Globulin 2.2 g/dL (2.4-3.5); Glucose 103 mg/dL (70-105); Osmolality,Calculated 290 (280-300); Potassium 3.6 mEq/L (3.5-5.1); Sodium 139 mEq/L (136-145); Total Protein 6.4 g/dL (6.4-8.9); Troponin I < 0.03 ng/mL (< 0.04); eGFR For African Americans > 60 (> 60); eGFR For Non-African Americans > 60 (> 60)
[2019-10-31 10:07] LABS: Bilirubin,Urine Negative (Negative); Blood,Urine Moderate (Negative); Clarity,Urine Clear (Clear); Color,Urine Light-Yellow (Yellow); Glucose,Urine (UA) Normal (Normal); Ketones,Urine Negative (Negative); Leukocyte Esterase,Urine Negative (Negative); Mucus,Urine Few per lpf (None-Few); Nitrite,Urine Negative (Negative); Protein,Urine Trace mg/dL (Neg-Trace); Specific Gravity,Urine 1.022 (1.010-1.025); Urobilinogen,Urine Normal (Normal); WBC,Urine 0-3 per hpf (0-3)
[2019-10-31] MEDS ORDERED: cefTRIAXone 1,000 MG in 0.9 % Sodium Chloride Mini Bag 100 ML IVPB ONE (11:48)
[2019-10-31] MEDS ORDERED: levoFLOXacin 750 MG/150 ML 750 MG/150 ML BAG IVPB ONE (12:00)
[2019-10-31] MEDS ORDERED: Naloxone 0.4 MG/ML INJ IVP PRN (13:57)
[2019-10-31] MEDS ORDERED: Nitroglycerin 0.4 MG TAB.SUBL SL PRN (14:51)
[2019-10-31] MEDS ORDERED: ALPRAZolam 0.5 MG TABLET PO PRN (14:51)
[2019-10-31] MEDS ORDERED: Perflutren Lipid Microsphere 1.3 ML in 0.9 % Sodium Chloride 8.7 ML IVP PRN (14:55)
[2019-10-31 15:13] LABS: Adenovirus Not Detected (Not Detect); Bordetella Pertussis Not Detected (Not Detect); Chlamydophila pneumoniae Not Detected (Not Detect); Coronavirus 229E Not Detected (Not Detect); Coronavirus HKU1 Not Detected (Not Detect); Coronavirus NL63 Not Detected (Not Detect); Coronavirus OC43 Not Detected (Not Detect); Human Metapneumovirus Not Detected (Not Detect); Human Rhinovirus/Enterovirus Not Detected (Not Detect); Influenza A Subtype 2009 H1 Not Detected (Not Detect); Influenza B Not Detected (Not Detect); Mycoplasma pneumoniae Not Detected (Not Detect); Parainfluenza Virus 1 Not Detected (Not Detect); Parainfluenza Virus 2 Not Detected (Not Detect); Parainfluenza Virus 3 Not Detected (Not Detect); Parainfluenza Virus 4 Not Detected (Not Detect); Respiratory Syncytial Virus Not Detected (Not Detect); SARS-CoV-2 Not Detected (Not Detect)
[2019-10-31] MEDS: carvediloL 6.25 MG TABLET PO SCH (16:35)
[2019-11-01 06:44] LABS: Basophils % 0.4 %; Eosinophils % 0.5 %; Hematocrit 43.3 % (35.3-44.9); Hemoglobin 14.3 g/dL (11.5-15.4); Immature Granulocytes % 0.2 % (0-4); Lymphocytes # 1.8 K/mcL (0.6-4.6); Lymphocytes % 22.5 %; Mean Corpuscular Hemoglobin 31.4 pg (28.0-33.3); Mean Platelet Volume 9.6 fL (9.4-12.4); Monocytes # 0.6 K/mcL (0.0-1.3); Monocytes % 7.3 %; Neutrophils # 5.6 K/mcL (1.6-8.9); Platelet Count 191 K/mcL (140-400); Red Blood Count 4.56 M/mcL (3.82-4.97); Red Cell Distribution Width 12.9 % (11.5-14.5); Segmented Neutrophils % 69.1 %; White Blood Count 8.1 K/mcL (4.3-11.1)
[2019-11-01 07:06] LABS: BUN/Creatinine Ratio 26 (6-26); Blood Urea Nitrogen 16 mg/dL (8-23); Calcium 9.5 mg/dL (8.6-10.3); Carbon Dioxide 25 mEq/L (23-29); Chloride 107 mEq/L (98-107); Glucose 86 mg/dL (70-105); Osmolality,Calculated 286 (280-300); Sodium 138 mEq/L (136-145); eGFR For African Americans > 60 (> 60); eGFR For Non-African Americans > 60 (> 60)
[2019-11-01] MEDS ORDERED: lisinopriL 10 MG TABLET PO SCH (09:00)
[2019-11-01] MEDS ORDERED: levoFLOXacin 750 MG/150 ML 750 MG/150 ML BAG IVPB SCH (09:00)
[2019-11-01] MEDS ORDERED: Aspirin 81 MG TAB.CHEW PO SCH (09:00)
[2019-11-01 10:28] VITALS: BP 128/82
[2019-11-01] MEDS: carvediloL 6.25 MG TABLET PO SCH (10:34)
[2019-11-01] MEDS ORDERED: Cholecalciferol (D-3) 1,000 UNIT (25MCG) TABLET PO SCH (11:45)
== END 2019-11-01 14:56 | disposition home or self-care (01) ==
LOC: 3BNU 08:45 → EMEROOARM 08:45 → SUATTDRO 15:26 → 3BNU 15:55
PROVIDERS: ADMIT Internal Medicine; ATTEND Internal Medicine